=== PATIENT | male | born 1970 | race Caucasian/White ===

== ENCOUNTER 2019-07-20 02:52 | Emergency (ER) | payer SELFPAY ==
[2019-07-20 03:13] VITALS: TEMP 98.5
[2019-07-20] MEDS ORDERED: PROCHLORPERAZINE INJ 10 MG/2 ML VIAL IV ONE ×2 (03:27→05:02)
[2019-07-20] MEDS ORDERED: MORPHINE SULFATE INJ 10 MG/ML VIAL IV ONE ×2 (03:27→05:02)
[2019-07-20] MEDS ORDERED: LACTATED RINGERS 1,000 ML IVS ONE (03:27)
--- NOTE | 2019-07-20 03:27 | ED.PDOC ---
History of Present Illness - General Chief Complaint: Abdominal Pain Stated Complaint: abd cramping Time Seen by Provider: 07/20/19 03:22 Information Source: patient Exam Limitations: no limitations - History of Present Illness Initial Comments: Boaz Landeros 49 y/o male came to ER with left sided abdominal cramps today with blood in stools.Has history of Crohns Disease diagnosed last year.He is from [place], [place] and on the following medications for his Crohns- steroids,Azathioprine,metronidazole but ran out for the last 2 weeks and did not call up his primary Md or GI specialist for refills.No N/V/D,no fever/chills.No follow up with GI specialist for a year. Abdominal Pain Onset Location: LLQ Pain Radiation: no radiation Quality: moderate, cramping Timing/Duration: 24 hours Improving Factors: nothing Worsening Factors: nothing Associated Symptoms: other - see hpi Review of Systems - Review of Systems Gastrointestinal/Abdominal: States: see HPI, abdominal pain - cramps All other Systems: Reviewed and Negative, No Change from Baseline Past Medical History (General) - Patient Medical History Hx Seizures: No Hx Stroke: No Hx Dementia: No Hx Asthma: No Hx of COPD: No Hx Cardiac Disorders: No Hx Congestive Heart Failure: No Hx Pacemaker: No Hx Hypertension: Yes Hx Thyroid Disease: No Hx Diabetes: No Hx Gastroesophageal Reflux: Yes - Chrohn's Hx Renal Disease: No Hx of HIV: No Hx MRSA: No Surgical History: other - lumbar spine;colonoscopy - Vaccination History Hx Tetanus, Diphtheria Vaccination: No Hx Influenza Vaccination: No - Social History Hx Tobacco Use: No Hx Alcohol Use: No Family Medical History - Family History Father Family History: Unknown Living Status: Unknown Physical Exam - Physical Exam General Appearance: Alert, Comfortable, No apparent distress Eyes, Ears, Nose, Throat Exam: normal ENT inspection Neck: supple, normal inspection Respiratory: chest non-tender, lungs clear, normal breath sounds Cardiovascular/Chest: normal peripheral pulses, regular rate, rhythm, no murmur Peripheral Pulses: No deficit Gastrointestinal/Abdominal: normal bowel sounds, soft, no organomegaly, tenderness - LLQ no peritoneal signs Back Exam: no CVA tenderness, no vertebral tenderness Extremity: no pedal edema, no calf tenderness Neurologic: alert, oriented x 3 Skin Exam: normal color, warm/dry Progress - Progress Progress: 07/20/19 03:36 Vital Signs - 8 hr 07/20/19 03:05 Temperature 98.5 F Pulse Rate [ 132 H left] Respiratory 20 Rate Blood Pressure 137/88 [Left Arm] O2 Sat by Pulse 96 Oximetry 07/20/19 06:18 Discuss all test results with patient - Results/Orders Results/Orders: Vital Signs - 8 hr 07/20/19 07/20/19 03:05 04:17 Temperature 98.5 F Pulse Rate [ 132 H 110 H left] Respiratory 20 20 Rate Blood Pressure 137/88 104/78 [Left Arm] O2 Sat by Pulse 96 90 L Oximetry - EKG/XRAY/CT XRAY: abdomen - no acute abnormalities noted Departure - Departure Clinical Impression: Crohn's disease of colon with rectal bleeding, Abdominal pain, LLQ Time of Disposition: 06:22 Disposition: Discharge to Home or Self Care Condition: Fair Departure Forms: ED Discharge - Pt. Copy, Patient Portal Self Enrollment Instructions: DI for Abdominal Pain-Adult, Crohn's Disease in Adults, Crohn's Disease (DC), Crohn's Disease Diet Prescriptions: predniSONE 10 mg PO BID 10 Days #20 tab Promethazine W/Codeine Syr [Phenergan With Codeine Syrup] 10 ml PO TID PRN #100 ud PRN Reason: Abdominal Cramping Home Medications: Ambulatory Orders Promethazine W/Codeine Syr [Phenergan With Codeine Syrup] 10 ml PO TID PRN #100 ud 07/20/19 predniSONE 10 mg PO BID 10 Days #20 tab 07/20/19 Additional Instructions: Return to Emergency Room as needed;Need to sign up with primary Md DOLLY [phone]
[2019-07-20] MEDS ORDERED: methylPREDNISolone SODIUM SUC 125 MG/2 ML VIAL IV ONE (03:31)
[2019-07-20] MEDS ORDERED: SODIUM CHLORIDE 0.9% 1000ML 1,000 ML IVS ONE (05:03)
--- NOTE | 2019-07-20 05:52 | RAD ---
ABDOMEN SERIES AND CHEST, XR 07/20/2019 CLINICAL HISTORY: Abdominal pain. COMPARISON: None. TECHNIQUE: Two views of the abdomen. Single frontal view of the chest FINDINGS: Chest: Heart is normal in size. Normal bony vascularity. Clear lungs and pleural spaces. No pneumothorax. Abdomen: Moderate stool within the ascending colon to the rectal region. No free air. No pathologic calcifications. No abnormal bowel displacement. Unremarkable bones and soft tissues. IMPRESSION: 1. No acute chest disease. 2. Mild constipation. Electronically signed by: Ana Adams DO 07/20/2019 5:08 AM CDT
[2019-07-20 06:09] VITALS: BP 100/64; O2SAT 92
[2019-07-20] MEDS ORDERED: HYDROCOD/APAP 10/325 (ER DISP) # 3 tablets PO ONE (06:25)
[2019-07-20] MEDS ORDERED: PROMETHAZINE TAB (ER DISP) 25 MG TAB PO ONE (06:26)
== END 2019-07-20 06:45 | disposition home or self-care (01) ==
LOC: ER 02:52
DX: K50.90 Crohn's disease, unspecified, without complications (principal); K62.5 Hemorrhage of anus and rectum; I10 Essential (primary) hypertension; K21.9 Gastro-esophageal reflux disease without esophagitis; Z79.899 Other long term (current) drug therapy
CPT/HCPCS: 36415; 74019; 80048; 80076; 82550; 82553; 84484; 85025; 85610; 85730; J0780; J2270; J2930; J7030; J7120

== ENCOUNTER 2019-08-31 20:06 | Emergency (ER) | payer SELFPAY ==
[2019-08-31 20:34] VITALS: TEMP 99.1
[2019-08-31] MEDS ORDERED: MORPHINE SULFATE INJ 10 MG/ML VIAL IV ONE (20:58)
[2019-08-31] MEDS ORDERED: ONDANSETRON INJ 4 MG/2 ML VIAL IV ONE (20:58)
[2019-08-31] MEDS ORDERED: SODIUM CHLORIDE 0.9% 1000ML 1,000 ML IVS ONE (20:58)
--- NOTE | 2019-08-31 20:58 | ED.PDOC ---
History of Present Illness - General Time Seen by Provider: 08/31/19 20:44 Information Source: patient Exam Limitations: no limitations - History of Present Illness Initial Comments: Patient presents to the ED complaining of abdominal pain. PMH is significant for Crohn's colitis. He states that he has been in a flare for almost three weeks now. He does not have insurance and sometimes has difficulty getting is medications. He states that he has been reducing his dose of mesalamine and azathioprine in order for them to last longer. He complains of three weeks of colitis flare including bloody bowel movements. He is having difficulty tolerating PO due to severe cramping pain and vomiting. He reports 10-12 bloody stools daily and has had fever to 100.9 at home. He feels weak, dizzy and short of breath. No other complaints at this time. Abdominal Pain Onset Location: generalized abdomen Pain Radiation: no radiation Quality: severe, aching, sharpness, throbbing Timing/Duration: days, constant, getting worse Improving Factors: nothing Worsening Factors: nothing Review of Systems - Review of Systems Constitutional: States: chills, fever EENTM: States: no symptoms reported Respiratory: Denies: cough Cardiology: States: no symptoms reported Gastrointestinal/Abdominal: States: abdominal pain, diarrhea, nausea, vomiting Genitourinary: States: no symptoms reported Musculoskeletal: States: no symptoms reported Skin: States: no symptoms reported Neurological: States: no symptoms reported Endocrine: States: no symptoms reported Hematologic/Lymphatic: States: no symptoms reported Past Medical History (General) - Patient Medical History Hx Seizures: No Hx Stroke: No Hx Dementia: No Hx Asthma: No Hx of COPD: No Hx Cardiac Disorders: No Hx Congestive Heart Failure: No Hx Pacemaker: No Hx Hypertension: Yes Hx Thyroid Disease: No Hx Diabetes: No Hx Gastroesophageal Reflux: Yes - Chrohn's Hx Renal Disease: No Hx of HIV: No Hx MRSA: No - Vaccination History Hx Tetanus, Diphtheria Vaccination: No Hx Influenza Vaccination: No - Social History Hx Tobacco Use: No Hx Alcohol Use: No Family Medical History - Family History Father Family History: Unknown Living Status: Unknown Physical Exam - Physical Exam General Appearance: Alert, Comfortable, No apparent distress Neck: non-tender, full range of motion Respiratory: normal breath sounds, no accessory muscle use Cardiovascular/Chest: normal peripheral pulses, regular rate, rhythm Gastrointestinal/Abdominal: tenderness - diffuse Extremity: normal range of motion, non-tender, normal inspection Neurologic: no motor/sensory deficits, alert, oriented x 3 Progress - Progress Progress: 08/31/19 23:40 Patient reassessed, workup as above. I have recommended admission for crohn's flare. He declines. Would like to be discharged. Says he will self-present at [facility] tomorrow. Will refill medications. MDM: Patient presents to the ED with abdominal pain, bloody diarrhea. Partly compliant with medications at home but not taking full dosing. Workup as above. CT scan ordered to r/o abscess, fistula. Findings consistent with crohn's flare. Recommended admission due to ongoing blood losses, pain, inability to tolerate PO. The patient refused, states that he wants to go home and self-present tomorrow. Discussed risks, benefits and alternatives. Will refill his home medications and continue outpatient symptomatic management. patient understands he is welcome to return as needed. - Results/Orders Results/Orders: 08/31/19 22:18 Hold Metformin x 48Hrs [id number] Laboratory Results - last 24 hr 08/31/19 08/31/19 08/31/19 09:15 09:15 20:57 WBC 5.6 RBC 3.45 L Hgb 8.4 L Hct 27.2 L MCV 78.9 L MCH 24.4 L MCHC 30.9 L RDW 17.9 H Plt Count 285 MPV 7.9 Absolute Neuts (auto) 3.60 Absolute Lymphs (auto) 0.70 L Absolute Monos (auto) 1.20 H Absolute Eos (auto) 0.10 Absolute Basos (auto) 0.00 Neutrophils % 63.8 Lymphocytes % 12.6 L Monocytes % 21.7 H Eosinophils % 1.3 Basophils % 0.6 Normal RBC Morphology Stain quality accept Sodium 134 L Potassium 3.7 Chloride 98 L Carbon Dioxide 24 Anion Gap 15.7 BUN 10 Creatinine 1.07 BUN/Creatinine Ratio 9.3 L Random Glucose 96 Serum Osmolality 267.1 L Calcium 8.7 Total Bilirubin 0.2 AST 10 ALT 10 Alkaline Phosphatase 46 Serum Total Protein 6.0 L Albumin 3.1 L Globulin 2.9 Albumin/Globulin Ratio 1.1 Lipase 22 Patient ABO/Rh O NEGATIVE Antibody Screen Negative - EKG/XRAY/CT CT: descending colitis Departure - Departure Clinical Impression: Crohn's colitis Qualifiers: Digestive disease complication type: with rectal bleeding Qualified Code(s): K50.111 - Crohn's disease of large intestine with rectal bleeding Time of Disposition: 23:42 Disposition: Discharge to Home or Self Care Condition: Fair Departure Forms: ED Discharge - Pt. Copy, Patient Portal Self Enrollment Instructions: Crohn's Disease (DC) Diet: full liquid diet, bland diet Activity: increase activity as tolerated Prescriptions: Acetaminophen W/ Codeine [Tylenol W/ CODEINE #3] 1 ea PO Q6HR PRN #20 PRN Reason: Pain Ondansetron Tab [Zofran Tab] 4 mg PO Q6HR #12 tab Sulfasalazine 1,000 mg PO Q6HR #120 tab Azathioprine [Imuran] 250 mg PO DAILY #150 tab Hydrochlorothiazide 25 mg PO DAILY #30 tab Pantoprazole Tablet [Protonix] 40 mg PO ACBK #30 tab Home Medications: Ambulatory Orders Promethazine W/Codeine Syr [Phenergan With Codeine Syrup] 10 ml PO TID PRN #100 ud 07/20/19 predniSONE 10 mg PO BID 10 Days #20 tab 07/20/19 Acetaminophen W/ Codeine [Tylenol W/ CODEINE #3] 1 ea PO Q6HR PRN #20 08/31/19 Azathioprine [Imuran] 250 mg PO DAILY #150 tab 08/31/19 Hydrochlorothiazide 25 mg PO DAILY #30 tab 08/31/19 Ondansetron Tab [Zofran Tab] 4 mg PO Q6HR #12 tab 08/31/19 Pantoprazole Tablet [Protonix] 40 mg PO ACBK #30 tab 08/31/19 Sulfasalazine 1,000 mg PO Q6HR #120 tab 08/31/19
[2019-08-31 23:06] VITALS: BP 117/82; O2SAT 96
--- NOTE | 2019-08-31 23:11 | CT ---
CLINICAL HISTORY: fever, abdominal pain. Hx of crohn's COMPARISON: None. TECHNIQUE: CT ABDOMEN PELVIS WITH IV CONTRAST on 08/31/2019 10:18 PM CDT This exam was performed according to our departmental dose-optimization program, which includes automated exposure control, adjustment of the mA and/or kV according to patient size and/or use of iterative reconstruction technique. FINDINGS: Lower lungs are clear. Abdomen: The liver is normal in appearance. There is no biliary dilatation. Gallbladder is normal in appearance. The pancreas and spleen are normal in appearance. Adrenal glands are normal. Kidneys unremarkable. There is a small cyst in the lower pole of the left right kidney. Abdominal aorta is normal in course and caliber without aneurysm. There is no free air. There is no retroperitoneal adenopathy. Pelvis: There is mild thickening of much of the descending colon. Urinary bladder is unremarkable. There is no free fluid. Appendix is normal. Skeleton: There are no acute osseous findings. No suspicious bony lesions. IMPRESSION: Suspect infectious or inflammatory descending colitis. Electronically signed by: David Hurt MD 08/31/2019 11:10 PM CDT
== END 2019-08-31 23:55 | disposition home or self-care (01) ==
LOC: ER 20:06
DX: K50.111 Crohn's disease of large intestine with rectal bleeding (principal); I10 Essential (primary) hypertension; Z79.899 Other long term (current) drug therapy
CPT/HCPCS: 74177; 80053; 83690; 85025; 86850; 86900; 86901; J2270; J2405; J7030

== ENCOUNTER 2020-05-05 12:02 | Emergency (ER) | payer BC ==
[2020-05-05] MEDS ORDERED: SODIUM CHLORIDE 0.9% 1000ML 1,000 ML IVS ONE (12:25)
[2020-05-05] MEDS ORDERED: KETOROLAC TROMETHAMINE INJ 30 MG/ML VIAL IM ONE (12:25)
[2020-05-05] MEDS ORDERED: KETOROLAC TROMETHAMINE INJ 30 MG/ML VIAL IV ONE (12:36)
[2020-05-05] MEDS ORDERED: HYOSCYAMINE SULFATE 0.125 MG TAB PO ONE (14:02)
[2020-05-05] MEDS ORDERED: MORPHINE SULFATE INJ 10 MG/ML VIAL IV ONE (14:02)
--- NOTE | 2020-05-05 14:21 | CT ---
EXAM DESCRIPTION: Abdomen/Pelvis w/Contrast: Computed Tomography. CLINICAL HISTORY: 50 years Male abd pain, hx Crohn's COMPARISON: CT scan abdomen and pelvis with IV contrast August 2019. TECHNIQUE: Spiral-axial scans at 5 mm intervals through the abdomen and pelvis, after nonionic IV contrast without oral contrast. Coronal and sagittal 2.0 mm reconstructions. Delayed scans, liver through the pelvis. Axial-spiral 5mm. No adverse reactions. Total Exam DLP: 1782 mGy-cm. This exam was performed according to our departmental dose-optimization program which includes automated exposure control, adjustment of the mA and/or kV according to patient size and/or use of iterative reconstruction technique; to reduce radiation dose to as low as reasonably achievable (ALARA). Due to technical factors, the first scan during the portal venous phase showed minimal contrast enhancement. FINDINGS: Lung bases and pleura: Negative. Liver, Stomach, Spleen, Adrenal Glands: Minimal contrast enhancement, otherwise negative. Pancreas, Gallbladder, Ducts: Gallbladder slightly enlarged. Pancreas and ducts negative. Kidneys and Ureters: 2 cm cyst anterior mid right kidney stable. No radiodense stones hydronephrosis or hydroureter bilaterally. Mesentery: Fatty stranding in the left upper quadrant abutting the proximal descending colon anterior to the spleen and also lateral to the left kidney. No free air or ascites or free pelvic fluid. Minimal thickening of the pericolic gutter fascia bilaterally. Aorta: Early atherosclerotic calcification with normal caliber. Small Bowel: Diffuse gas but no significant amount of fluid distention or air-fluid levels. Fecalization of distal ileum. Terminal Ileum/Cecum: Located in the mid pelvis just to the right of midline. Normal caliber including the appendix. Fecalization in the TI. Colon: Minimal fecal matter in the ascending colon and proximal to mid transverse colon. Thickening of the wall of the distal transverse colon, splenic flexure, and descending colon to the proximal sigmoid colon. Stranding in the pericolonic fat. Fecal matter distally with normal appearance of the sigmoid colon. No surrounding fatty stranding. Pelvic Organs: Negative. Spine and Bony Pelvis: Advanced spondylosis L5-S1 with bilateral significant foraminal narrowing. Minimal spondylosis distal thoracic spine. Distal coccygeal segments angled 90 degrees anteriorly to the mid and distal sacrum. Abdominal Wall/Back Soft Tissues: Stable fatty inguinal hernia on the left with bilateral inguinal lymph nodes. IMPRESSION: 1. Colitis distal transverse colon, splenic flexure, and descending colon, most likely related to clinical history and Crohn's. Surrounding fatty stranding and fascial thickening but no free air or free fluid. Colon wall thickening involves a shorter segment than the prior study. Gas distention of the small bowel and colon has decreased since the prior study 2. Other findings stable since the prior study. Electronically signed by: Orlando Fuentes MD 05/05/2020 2:20 PM CDT
[2020-05-05] MEDS ORDERED: methylPREDNISolone SODIUM SUC 125 MG/2 ML VIAL IV ONE (14:26)
[2020-05-05] MEDS ORDERED: metroNIDAZOLE 500 MG TAB PO ONE (14:26)
[2020-05-05] MEDS ORDERED: CIPROFLOXACIN 500 MG TAB PO ONE (14:26)
--- NOTE | 2020-05-05 14:53 | ED.PDOC ---
History of Present Illness - General Chief Complaint: Abdominal Pain Stated Complaint: abdominal cramping,vomiting Time Seen by Provider: 05/05/20 12:18 Source: patient Exam Limitations: no limitations - History of Present Illness Initial Comments: The patient is a 50-year-old male presented emergency room secondary to pain related to what appears to be a Crohn's flare. He has had intermittent blood in his stools over the last week. He reports that he gets a flare about every 2 to 3 months. He does not currently have a city designer but gets his azathioprine and sulfasalazine from his primary care doctor. No definite fevers. Increased cramping to the left side over the last week. No vomiting but mild nausea. No definite fever. No history of any abdominal surgeries. He was just diagnosed about a year ago. Timing/Duration: 1 week Severity: moderate Improving Factors: nothing Worsening Factors: nothing Associated Symptoms: loss of appetite, malaise, nausea/vomiting Allergies/Adverse Reactions: Allergies Penicillins Allergy (Verified 07/20/19 03:28) Home Medications: Ambulatory Orders Azathioprine [Imuran] 250 mg PO DAILY #150 tab 08/31/19 Ciprofloxacin [Cipro] 500 mg PO BID #20 tab 05/05/20 Famotidine 20 mg PO DAILY #30 tab 05/05/20 Lisinopril & Hydrochlorothiazi [Lisinopril/Hydrochlorothi 20-12.5 mg] 1 tab PO DAILY 05/05/20 Metronidazole 500 mg PO TID #30 tab 05/05/20 Sulfasalazine 500 mg PO QID 05/05/20 Tramadol HCl 50 mg PO Q8HR PRN #20 tab 05/05/20 predniSONE [Prednisone] 80 mg PO DAILY #40 tab 05/05/20 Review of Systems - Review of Systems Constitutional: States: malaise EENTM: States: no symptoms reported Respiratory: States: no symptoms reported Cardiology: States: no symptoms reported Gastrointestinal/Abdominal: States: see HPI Genitourinary: States: no symptoms reported Musculoskeletal: States: no symptoms reported Skin: States: no symptoms reported Neurological: States: no symptoms reported Endocrine: States: no symptoms reported All other Systems: No Change from Baseline Past Medical History (General) - Patient Medical History Hx Seizures: No Hx Stroke: No Hx Dementia: No Hx Asthma: No Hx of COPD: No Hx Cardiac Disorders: No Hx Congestive Heart Failure: No Hx Pacemaker: No Hx Hypertension: Yes Hx Thyroid Disease: No Hx Diabetes: No Hx Gastroesophageal Reflux: Yes - Chrohn's Hx Renal Disease: No Hx of HIV: No Hx MRSA: No - Vaccination History Hx Tetanus, Diphtheria Vaccination: No Hx Influenza Vaccination: Yes Hx Pneumococcal Vaccination: No - Social History Hx Tobacco Use: No Hx Chewing Tobacco Use: Yes Hx Alcohol Use: No Family Medical History - Family History Father Family History: Unknown Living Status: Unknown Physical Exam - Physical Exam General Appearance: Alert, No apparent distress Eye Exam: bilateral normal Ears, Nose, Throat: hearing grossly normal, normal ENT inspection, normal pharynx Neck: full range of motion, supple Respiratory: no respiratory distress, no accessory muscle use Cardiovascular/Chest: normal peripheral pulses, no edema, other - Regular rate Peripheral Pulses: radial,right: 2+, radial,left: 2+ Gastrointestinal/Abdominal: soft, other - Mild guarding to the left side. Rectal Exam: deferred Back Exam: no vertebral tenderness Extremity: normal range of motion, non-tender, normal inspection, no pedal edema, normal capillary refill Neurologic: auto technician mechanic II-XII nml as tested, alert, normal mood/affect, oriented x 3 Skin Exam: normal color Comments: Vital Signs - 24 hr 05/05/20 05/05/20 05/05/20 12:13 13:00 14:10 Temperature 99.6 F Pulse Rate [ 104 H 108 H 101 H Left Brachial] Respiratory 20 17 Rate Blood Pressure 159/102 129/83 135/92 [Left Arm] O2 Sat by Pulse 95 95 100 Oximetry Progress - Progress Progress: 05/05/20 14:56 Patient is a 50-year-old male presented emergency room secondary to what appears to be a Crohn's flare. The patient is going to be placed on 10 days of ciprofloxacin and metronidazole. He needs to avoid alcohol intake with these. He will also be written for Pepcid while on the antibiotics. Additionally he is going to be written for 80 mg of prednisone for the next 10 days as well. He does need to follow back up with his primary care doctor early next week. ER warnings are given for any obvious worsening. He will be written for some tramadol for as needed use as well. andre poon [phone] [facility] consulted - Results/Orders Results/Orders: CT of the abdomen pelvis with contrast shows what is most likely a Crohn's flare to the distal transverse and descending colon to the point of the sigmoid. No evidence of perforation, fistula formation or abscess formation. See report for details. Laboratory Tests 05/05/20 05/05/20 05/05/20 12:27 12:27 12:27 WBC 4.9 RBC 4.54 L Hgb 12.6 L Hct 38.1 L MCV 83.8 MCH 27.7 MCHC 33.0 RDW 18.2 H Plt Count 409 H MPV 8.4 Absolute Neuts (auto) 3.50 Absolute Lymphs (auto) 0.60 L Absolute Monos (auto) 0.50 Absolute Eos (auto) 0.10 Absolute Basos (auto) 0.10 Neutrophils % 72.5 Lymphocytes % 13.2 L Monocytes % 10.4 H Eosinophils % 2.1 Basophils % 1.8 Sodium 139 Potassium 4.2 Chloride 104 Carbon Dioxide 25 Anion Gap 14.2 BUN 9 Creatinine 0.83 BUN/Creatinine Ratio 10.8 Random Glucose 82 Serum Osmolality 275.3 Lactic Acid 1.1 Calcium 8.7 Total Bilirubin 0.5 AST 34 ALT 48 Alkaline Phosphatase 42 Creatine Kinase 303 H* CK-MB (CK-2) 3.1 CK-MB (CK-2) % Not Reportable Troponin I < 0.02 Serum Total Protein 7.3 Albumin 3.3 Globulin 4.0 H Albumin/Globulin Ratio 0.8 L Amylase 89 Lipase Urine Color Urine Appearance Urine pH Ur Specific [place] Urine Protein Urine Glucose (UA) Urine Ketones Urine Blood Urine Nitrite Urine Bilirubin Urine Urobilinogen Ur Leukocyte Esterase Urine RBC Urine WBC Ur Epithelial Cells Urine Bacteria 05/05/20 05/05/20 12:27 12:30 WBC RBC Hgb Hct MCV MCH MCHC RDW Plt Count MPV Absolute Neuts (auto) Absolute Lymphs (auto) Absolute Monos (auto) Absolute Eos (auto) Absolute Basos (auto) Neutrophils % Lymphocytes % Monocytes % Eosinophils % Basophils % Sodium Potassium Chloride Carbon Dioxide Anion Gap BUN Creatinine BUN/Creatinine Ratio Random Glucose Serum Osmolality Lactic Acid Calcium Total Bilirubin AST ALT Alkaline Phosphatase Creatine Kinase CK-MB (CK-2) CK-MB (CK-2) % Troponin I Serum Total Protein Albumin Globulin Albumin/Globulin Ratio Amylase Lipase 24 Urine Color Yellow Urine Appearance Clear Urine pH 7.5 Ur Specific [place] 1.025 Urine Protein Negative Urine Glucose (UA) Negative Urine Ketones Negative Urine Blood Negative Urine Nitrite Negative Urine Bilirubin Negative Urine Urobilinogen 0.2 Ur Leukocyte Esterase Negative Urine RBC 0 Urine WBC 0-1 Ur Epithelial Cells 0 Urine Bacteria 0 Departure - Departure Clinical Impression: Crohn's colitis Qualifiers: Digestive disease complication type: with rectal bleeding Qualified Code(s): K50.111 - Crohn's disease of large intestine with rectal bleeding Disposition: Discharge to Home or Self Care Condition: Fair Departure Forms: ED Discharge - Pt. Copy, Patient Portal Self Enrollment Instructions: Crohn's Disease (DC) Diet: bland diet Activity: increase activity as tolerated Referrals: HOLA PASCUAL [Primary Care Provider] - 1-2 Weeks Prescriptions: Tramadol HCl 50 mg PO Q8HR PRN #20 tab PRN Reason: Moderate Pain Ciprofloxacin [Cipro] 500 mg PO BID #20 tab Famotidine 20 mg PO DAILY #30 tab Metronidazole 500 mg PO TID #30 tab predniSONE [Prednisone] 80 mg PO DAILY #40 tab Home Medications: Ambulatory Orders Azathioprine [Imuran] 250 mg PO DAILY #150 tab 08/31/19 Ciprofloxacin [Cipro] 500 mg PO BID #20 tab 05/05/20 Famotidine 20 mg PO DAILY #30 tab 05/05/20 Lisinopril & Hydrochlorothiazi [Lisinopril/Hydrochlorothi 20-12.5 mg] 1 tab PO DAILY 05/05/20 Metronidazole 500 mg PO TID #30 tab 05/05/20 Sulfasalazine 500 mg PO QID 05/05/20 Tramadol HCl 50 mg PO Q8HR PRN #20 tab 05/05/20 predniSONE [Prednisone] 80 mg PO DAILY #40 tab 05/05/20 Additional Instructions: Patient is a 50-year-old male presented emergency room secondary to what appears to be a Crohn's flare. The patient is going to be placed on 10 days of ciprofloxacin and metronidazole. He needs to avoid alcohol intake with these. He will also be written for Pepcid while on the antibiotics. Additionally he is going to be written for 80 mg of prednisone for the next 10 days as well. He does need to follow back up with his primary care doctor early next week. ER warnings are given for any obvious worsening. He will be written for some tramadol for as needed use as well.
[2020-05-05 15:09] VITALS: BP 134/89; TEMP 98; O2SAT 94
== END 2020-05-05 15:09 | disposition home or self-care (01) ==
LOC: ER 12:02
DX: K50.111 Crohn's disease of large intestine with rectal bleeding (principal); I10 Essential (primary) hypertension
CPT/HCPCS: 36415; 74177; 80053; 81001; 82150; 82550; 82553; 83605; 83690; 84484; 85025; J1885; J2270; J2930; J7030

== ENCOUNTER 2020-08-09 14:17 | Observation (INO) | payer BC ==
[2020-08-09] MEDS ORDERED: PROMETHAZINE HCL INJ 25 MG in SODIUM CHLORIDE 0.9% 50ML 50 ML IVPB ONE (14:40)
[2020-08-09] MEDS ORDERED: MORPHINE SULFATE INJ 10 MG/ML VIAL IV ONE ×3 (14:40→17:48)
[2020-08-09] MEDS ORDERED: methylPREDNISolone SODIUM SUC 125 MG/2 ML VIAL IV ONE (14:41)
[2020-08-09] MEDS ORDERED: SODIUM CHLORIDE 0.9% 1000ML 1,000 ML IVS ONE (14:41)
--- NOTE | 2020-08-09 17:07 | CT ---
EXAM: CT Abdomen and Pelvis With Intravenous Contrast CLINICAL HISTORY: The patient is 50 years old and is Male; suspected Crohn's flare, left upper abd pain TECHNIQUE: Axial computed tomography images of the abdomen and pelvis with intravenous contrast. Sagittal and coronal reformatted images were created and reviewed. This CT exam was performed using one or more of the following dose reduction techniques: automated exposure control, adjustment of the mA and/or kV according to patient size, and/or use of iterative reconstruction technique. COMPARISON: CT abdomen pelvis May 05, 2020. FINDINGS: Lung bases: Unremarkable. No mass. No consolidation. ABDOMEN: Liver: Unremarkable. No mass. Gallbladder and bile ducts: Mildly distended gallbladder without calcified stones. No ductal dilation. Pancreas: No findings to suggest acute pancreatitis. No mass visualized. No ductal dilation. Spleen: Unremarkable. No splenomegaly. Adrenals: Unremarkable. No mass. Kidneys and ureters: Bilateral perinephric stranding, nonspecific. No hydronephrosis or ureter stone. Right renal simple cyst, 2.4 cm. No follow-up imaging recommended. Stomach and bowel: No bowel dilatation or obstruction. No bowel wall thickening. Stomach is not well distended. PELVIS: Appendix: The visualized appendix is normal. No pericecal inflammation to suggest acute appendicitis. Bladder: Unremarkable. No mass. Reproductive: Unremarkable as visualized. ABDOMEN and PELVIS: Intraperitoneal space: Unremarkable. No free air. No significant fluid collection. Bones/joints: Bilateral femoral head AVN without femoral head collapse. L5-S1 degenerative disc disease. Old left posterior rib fractures. No acute fracture. No dislocation. Soft tissues: Unremarkable. Vasculature: Unremarkable. No abdominal aortic aneurysm. Lymph nodes: No pathologically enlarged lymph nodes. Other findings: . IMPRESSION: 1. No acute obstructive or inflammatory process identified. Normal appendix. 2. Mildly distended gallbladder without calcified stones. 3. Additional non-emergent findings as above. Electronically signed by: Rachel Castro MD 08/09/2020 5:05 PM CDT
[2020-08-09] MEDS ORDERED: levoFLOXacin 500MG IV 500 MG in PREMIX BAG 1 BAG IVPB ONE (17:29)
[2020-08-09] MEDS ORDERED: SUCRALFATE 1 GM/10 ML 1 GM UD PO ONE (17:29)
[2020-08-09] MEDS ORDERED: metroNIDAZOLE IV PREMIX 500MG 500 MG in PREMIX BAG 1 BAG IVPB ONE (17:29)
--- NOTE | 2020-08-09 17:36 | ED.PDOC ---
History of Present Illness - General Chief Complaint: Problem Stated Complaint: ABD pain, N/V/D, bloody stool, bloody vomitus Time Seen by Provider: 08/09/20 14:29 Source: patient Exam Limitations: no limitations - History of Present Illness Initial Comments: The patient is a 50-year-old male presented to the emergency room secondary to severe left upper quadrant pain progressive over the last 3 to 4 days with around 6 episodes of vomiting some with a little bit of blood in it. He is also had increased frequency of diarrhea, possibly also blood-tinged. Does have a 3 to 4-year history of Crohn's disease. 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 He was on Imuran at one point but is no longer on it. He does report that he is still on azathioprine and sulfasalazine. 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 He denies having had any abdominal surgeries in the past. No history of any intra-abdominal abscesses or fistulas. The patient is pleasant and cooperative though he is obviously in significant pain. It does require about 6 mg of morphine and 25 mg of IV Phenergan to help get the pain and nausea under control. I see no definitive history of any drug-seeking behavior. FILES SUPERVISOR aware was consulted. Timing/Duration: constant, getting worse Severity: severe Improving Factors: nothing Worsening Factors: eating Associated Symptoms: loss of appetite, malaise, nausea/vomiting Allergies/Adverse Reactions: Allergies Penicillins Allergy (Verified 08/09/20 14:58) Home Medications: Ambulatory Orders Azathioprine [Imuran] 250 mg PO DAILY #150 tab 08/31/19 Famotidine 20 mg PO DAILY #30 tab 05/05/20 Lisinopril & Hydrochlorothiazi [Lisinopril/Hydrochlorothi 20-12.5 mg] 1 tab PO DAILY 05/05/20 Metronidazole 500 mg PO TID #30 tab 05/05/20 Sulfasalazine 500 mg PO QID 05/05/20 Tramadol HCl 50 mg PO Q8HR PRN #20 tab 05/05/20 Review of Systems - Review of Systems Constitutional: States: malaise EENTM: States: no symptoms reported Respiratory: States: no symptoms reported Cardiology: States: no symptoms reported Gastrointestinal/Abdominal: States: abdominal pain, diarrhea, nausea, vomiting Genitourinary: States: no symptoms reported Musculoskeletal: States: no symptoms reported Skin: States: no symptoms reported Neurological: States: no symptoms reported Endocrine: States: no symptoms reported All other Systems: No Change from Baseline Past Medical History (General) - Patient Medical History Hx Seizures: No Hx Stroke: No Hx Dementia: No Hx Asthma: No Hx of COPD: No Hx Cardiac Disorders: No Hx Congestive Heart Failure: No Hx Pacemaker: No Hx Hypertension: Yes Hx Thyroid Disease: No Hx Diabetes: No Hx Gastroesophageal Reflux: No Hx Renal Disease: No Hx of HIV: No Hx MRSA: No Surgical History: no surgical history - Vaccination History Hx Tetanus, Diphtheria Vaccination: No Hx Influenza Vaccination: No Hx Pneumococcal Vaccination: No - Social History Hx Tobacco Use: No Hx Chewing Tobacco Use: Yes Hx Alcohol Use: No Hx Substance Use: No Hx Substance Use Treatment: No Hx Depression: No - Female History Patient is a Female of Child Bearing Age (10 -59 yrs old): No Patient : No Family Medical History - Family History Father Family History: Unknown Living Status: Unknown Physical Exam - Physical Exam General Appearance: Alert, Obvious distress Eye Exam: bilateral normal Ears, Nose, Throat: hearing grossly normal, normal ENT inspection, normal pharyn x Neck: full range of motion, supple Respiratory: lungs clear, normal breath sounds, no respiratory distress, no accessory muscle use Cardiovascular/Chest: normal peripheral pulses, regular rate, rhythm, no edema Peripheral Pulses: radial,right: 2+, radial,left: 2+, dorsalis pedis,right: 2+, dorsalis pedis,left: 2+ Gastrointestinal/Abdominal: other - No definite palpable mass. No definite rebound. Patient has discomfort to palpation primarily in the left upper quadrant. No significant pain in the right lower quadrant. No significant pain the right upper quadrant. There is also some mild to moderate pain in the left lower quadrant. Rectal Exam: deferred Back Exam: no CVA tenderness, no vertebral tenderness Extremity: normal range of motion, non-tender, normal inspection, no pedal edema , normal capillary refill Neurologic: teacher adult education II-XII nml as tested, alert, normal mood/affect, oriented x 3 Skin Exam: normal color Comments: Vital Signs - 24 hr 08/09/20 08/09/20 08/09/20 14:25 14:41 15:30 Temperature 98.6 F Pulse Rate [ 109 H 109 H 104 H Pulse ox] Respiratory 20 20 18 Rate Blood Pressure 121/79 152/88 [L arm] O2 Sat by Pulse 97 94 L Oximetry 08/09/20 08/09/20 16:07 17:00 Temperature 98.6 F Pulse Rate [ 93 H 106 H Pulse ox] Respiratory 20 Rate Blood Pressure 157/99 137/97 [L arm] O2 Sat by Pulse 100 92 L Oximetry Progress - Progress Progress: 08/09/20 17:40 The patient is a 50-year-old male presented emergency room secondary to severe abdominal pain progressive over the last 3 to 4 days. He does have a history of Crohn's disease and this is most likely the source. The patient reports good compliance with sulfasalazine and azathioprine. He has lost his tractor trailer driver. No fevers. The patient has required significant IV medications to help control pain as well as nausea and vomiting. He will be brought in as inpatient for management of symptoms. He is being started on metronidazole and ciprofloxacin. Will be collected to check for C. difficile. The patient is also been started on IV Solu-Medrol. No evidence of uncontrolled hemorrhage. An iron panel may prove beneficial for the patient. The patient has been started on a proton pump inhibitor in the IV form. He is also been given a GI cocktail and Carafate to reduce any gastric and upper GI irritation or inflammation. CT scan was reassuring. Admit for continued care. Expect a relatively short hospital stay as long as the patient's symptoms improve as expected. andre poon [id number] - Results/Orders Results/Orders: CT scan abdomen pelvis with IV contrast shows no obvious acute bowel pathology. No perforation. No abscess. No obstruction. No overt evidence of any active hemorrhage. See report for details. EKG shows mild sinus tachycardia. Mild left axis deviation. Possible left posterior fascicular block. Borderline R wave progression. Mild left atrial dilation. Mild T wave inversions in aVL otherwise no abnormal significant T waves. No ST segment deviation. Normal QT interval. Laboratory Results - last 24 hr 08/09/20 08/09/20 08/09/20 14:50 14:50 14:50 WBC 6.8 RBC 4.20 L Hgb 11.7 L Hct 34.8 L MCV 82.9 MCH 27.9 MCHC 33.6 RDW 22.7 H Plt Count 219 MPV 9.1 Absolute Neuts (auto) 5.50 Absolute Lymphs (auto) 0.50 L Absolute Monos (auto) 0.60 Absolute Eos (auto) 0.20 Absolute Basos (auto) 0.10 Neutrophils % 80.0 H Lymphocytes % 7.3 L Monocytes % 9.0 Eosinophils % 2.4 Basophils % 1.3 Normal RBC Morphology 1+aniso PT 9.7 INR < 1.00 PTT (SP) 23.1 Sodium 142 Potassium 4.5 Chloride 107 Carbon Dioxide 27 Anion Gap 12.5 BUN 16 Creatinine 0.76 BUN/Creatinine Ratio 21.1 H Random Glucose 95 Serum Osmolality 284.1 Lactic Acid Calcium 8.4 Magnesium 2.0 Total Bilirubin 0.7 AST 68 H ALT 57 Alkaline Phosphatase 43 Creatine Kinase 226 H* CK-MB (CK-2) 1.9 CK-MB (CK-2) % Not Reportable Troponin I 0.02 B-Natriuretic Peptide 113.0 H Serum Total Protein 6.6 Albumin 3.4 Globulin 3.2 Albumin/Globulin Ratio 1.1 Amylase 104 H Lipase 31 Urine Color Urine Appearance Urine pH Ur Specific [place] Urine Protein Urine Glucose (UA) Urine Ketones Urine Blood Urine Nitrite Urine Bilirubin Urine Urobilinogen Ur Leukocyte Esterase Urine RBC Urine WBC Ur Epithelial Cells Urine Bacteria 08/09/20 08/09/20 14:50 16:00 WBC RBC Hgb Hct MCV MCH MCHC RDW Plt Count MPV Absolute Neuts (auto) Absolute Lymphs (auto) Absolute Monos (auto) Absolute Eos (auto) Absolute Basos (auto) Neutrophils % Lymphocytes % Monocytes % Eosinophils % Basophils % Normal RBC Morphology PT INR PTT (SP) Sodium Potassium Chloride Carbon Dioxide Anion Gap BUN Creatinine BUN/Creatinine Ratio Random Glucose Serum Osmolality Lactic Acid 1.0 Calcium Magnesium Total Bilirubin AST ALT Alkaline Phosphatase Creatine Kinase CK-MB (CK-2) CK-MB (CK-2) % Troponin I B-Natriuretic Peptide Serum Total Protein Albumin Globulin Albumin/Globulin Ratio Amylase Lipase Urine Color Yellow Urine Appearance Clear Urine pH 7.0 Ur Specific [place] 1.025 Urine Protein Negative Urine Glucose (UA) Negative Urine Ketones Negative Urine Blood Negative Urine Nitrite Negative Urine Bilirubin Negative Urine Urobilinogen 0.2 Ur Leukocyte Esterase Negative Urine RBC 0 Urine WBC 0 Ur Epithelial Cells 0 Urine Bacteria 0 Departure - Departure Clinical Impression: Crohn's disease of colon with rectal bleeding Crohns disease of small intestine Qualifiers: Digestive disease complication type: unspecified complication Qualified Code(s): K50.019 - Crohn's disease of small intestine with unspecified complications Disposition: Admit Patient Departure Forms: ED Discharge - Pt. Copy, Patient Portal Self Enrollment Referrals: HOLA PASCUAL [Primary Care Provider] - 1-2 Weeks Home Medications: Ambulatory Orders Azathioprine [Imuran] 250 mg PO DAILY #150 tab 08/31/19 Famotidine 20 mg PO DAILY #30 tab 05/05/20 Lisinopril & Hydrochlorothiazi [Lisinopril/Hydrochlorothi 20-12.5 mg] 1 tab PO DAILY 05/05/20 Metronidazole 500 mg PO TID #30 tab 05/05/20 Sulfasalazine 500 mg PO QID 05/05/20 Tramadol HCl 50 mg PO Q8HR PRN #20 tab 05/05/20 Decision To Admit - Decistion To Admit Decision to Admit Reason: Medical Nature Decision to Admit Date: 08/09/20 Decision to Admit Time: 17:43
[2020-08-09] MEDS ORDERED: KETOROLAC TROMETHAMINE INJ 30 MG/ML VIAL IV ONE (17:48)
[2020-08-09] MEDS: HYDROmorphone HCL INJ 2 MG/ML VIAL IV PRN (19:47)
[2020-08-09] MEDS ORDERED: SODIUM CHLORIDE 0.9% (FLUSH) 10 ML SYG IV PRN (19:54)
[2020-08-09] MEDS ORDERED: ONDANSETRON INJ 4 MG/2 ML VIAL IV PRN (19:54)
[2020-08-09] MEDS ORDERED: IV SET AND CAP CHANGE INJ INJ SCH (20:00)
[2020-08-09] MEDS: DEX 5% W/NACL 0.45% 1000ML 1,000 ML IVS PRN (20:52)
[2020-08-09] MEDS: SODIUM CHLORIDE 0.9% (FLUSH) 10 ML SYG IV SCH (20:54)
[2020-08-09] MEDS: sulfaSALAzine DELAYED RELEASE 500 MG TAB PO SCH (20:54)
[2020-08-09] MEDS: methylPREDNISolone SODIUM SUC 40 MG/ML VIAL IV SCH (22:21)
[2020-08-09] MEDS ORDERED: HYDROmorphone HCL INJ 2 MG/ML VIAL IV ONE (22:58)
[2020-08-09] MEDS ORDERED: metroNIDAZOLE IV PREMIX 500MG 100 ML IVPB ONE (23:49)
[2020-08-10] MEDS: metroNIDAZOLE IV PREMIX 500MG 500 MG in PREMIX BAG 1 BAG IVPB SCH ×3 (00:03→16:18)
[2020-08-10] MEDS: KETOROLAC TROMETHAMINE INJ 30 MG/ML VIAL IV SCH ×4 (00:04→18:07)
[2020-08-10] MEDS: HYDROmorphone HCL INJ 2 MG/ML VIAL IV PRN ×3 (00:15→09:00)
[2020-08-10] MEDS: DICYCLOMINE HCL 20 MG TAB PO PRN ×2 (02:52→08:57)
[2020-08-10] MEDS: DEX 5% W/NACL 0.45% 1000ML 1,000 ML IVS PRN (05:50)
[2020-08-10] MEDS: methylPREDNISolone SODIUM SUC 40 MG/ML VIAL IV SCH ×2 (05:52→14:07)
[2020-08-10] MEDS ORDERED: PANTOPRAZOLE SODIUM IV 40 MG VIAL IV SCH (06:30)
[2020-08-10] MEDS: sulfaSALAzine DELAYED RELEASE 500 MG TAB PO SCH ×3 (08:57→18:06)
[2020-08-10] MEDS: SODIUM CHLORIDE 0.9% (FLUSH) 10 ML SYG IV SCH (08:59)
[2020-08-10] MEDS ORDERED: hydroCHLOROthiazide 12.5 MG CAP PO SCH (09:00)
[2020-08-10] MEDS ORDERED: AZATHIOPRINE PO SCH (09:00)
[2020-08-10] MEDS ORDERED: LISINOPRIL 10 MG TAB PO SCH (09:00)
[2020-08-10] MEDS ORDERED: levoFLOXacin 500MG IV 500 MG in PREMIX BAG 1 BAG IVPB SCH (09:00)
[2020-08-10] MEDS: traMADol HCL 50 MG TAB PO PRN ×2 (10:16→14:06)
[2020-08-10] MEDS ORDERED: HYDROmorphone HCL INJ 2 MG/ML VIAL IV ONE (15:47)
--- NOTE | 2020-08-10 16:07 | US ---
EXAM DESCRIPTION: Abdomen,Complete: Ultrasound. CLINICAL HISTORY: 50 years Maleabd pain; hx of Crohn's dx; distended gb COMPARISON: None Available. TECHNIQUE: Transabdominal scanning: grayscale and Doppler modes. FINDINGS: Gallbladder: Elongated with prominent fold. Multiple foci of sludge. No fluid around the gallbladder. No wall thickening. mm Non-tender with transducer pressure. Common bile duct: caliber 3.9 mm within normal limits. Liver: normal echogenicity; contour liver capsule smooth where seen. No fluid around the liver. Intrahepatic biliary ducts normal caliber. Doppler hepatopedal flow and normal caliber portal vein 14 mm.. Long axis right lobe 17.9 cm. Pancreas: normal size and echogenicity. Limited visualization. Duct not seen. Complete abdominal aorta: Normal caliber from the proximal segment to the distal bifurcation.. IVC: visualized and normal caliber. Right kidney: long axis measures 13.5 cm; volume 263.9 mL. Increased cortical echogenicity. Normal cortical thickness. No echogenic stones; no hydronephrosis. Left kidney: long axis measures 11.5 cm; volume 282.7 mL. Increased cortical echogenicity.. Normal cortical thickness. No echogenic stones; no hydronephrosis. Spleen: Normal. No focal lesions.. 1 cm. long axis. Other: None. IMPRESSION: 1. Gallbladder elongated with prominent folds but no wall thickening or fluid. Diffuse debris/sludge in the gallbladder. Nontender with transducer pressure. No definite stones. Consider radionuclide hepatobiliary imaging if function is clinically poor. Common bile duct normal caliber. 2. Liver with steatosis and enlarged. Vascularity and ducts are unremarkable. Limited visualization of the pancreas but unremarkable. 3. Bilateral kidneys are enlarged with echogenic cortex equal to the liver. Correlate for medical renal disease. No echogenic stones or hydronephrosis. Normal caliber of the abdominal aorta and IVC. Electronically signed by: Orlando Fuentes MD 08/10/2020 4:05 PM CDT
[2020-08-10] MEDS ORDERED: HYDROmorphone HCL INJ 2 MG/ML VIAL ONE (16:08)
[2020-08-10 16:35] VITALS: O2SAT 95
[2020-08-10 18:30] VITALS: BP 136/81; TEMP 98
--- NOTE | 2020-08-17 08:42 | SSS ---
SUPERVISING PHYSICIAN: Eran Lozano MD DISCHARGE DIAGNOSES: 1. Acute exacerbation of chronic Crohn's disease with significant pain, nausea and vomiting. After treatment, he is mostly asymptomatic. 2. Hypertension, stable on medication. 3. Gastroesophageal reflux disease. 4. Crohn's disease, presently on Imuran and Sulfathalidine. 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 He came to the Emergency Room secondary to severe left upper quadrant pain that had progressively over the 3 to 4 previous days. He actually had to miss work 2 days prior to admission due to vomiting as well as his abdominal pain, increased frequency of diarrhea that actually may have been blood-tinged. He has a significant history of Crohn's disease and was actually seeing a apron operator who apparently recently retired. At this time, he is requesting to see Dr. Dillard in [place]. He was checked for Covid-19 in the Emergency Room which was negative. His initial vital signs were stable with the exception his heart rate was in the 100s. Lab studies were done and he had a WBC of 6,800 with hemoglobin of 11.7 and hematocrit of 34.8. Electrolytes were within normal limits. Creatinine kinase was 226 with BNP slightly elevated at 113 and amylase 104, lipase 31. Urinalysis was unremarkable. Abdomen and pelvis CT showed: 1. No acute obstructive process identified, normal appendix. 2. Mildly distended gallbladder without calcified stones. 3. Other findings as per the report. He was given morphine and Phenergan and he was placed in observation in stable condition for pain management. PAST MEDICAL HISTORY: 1. Gastroesophageal reflux disease. 2. Crohn's disease presently on Imuran and sulfasalazine. 3. Hypertension. PAST SURGICAL HISTORY: None. CURRENT MEDICATIONS: 1. Imuran. 2. Pepcid. 3. Lisinopril/Hydrochlorothiazide. 4. Sulfasalazine. 5. Tramadol. FAMILY HISTORY: SOCIAL HISTORY: He lives between [place] and [place]. 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 He denies any smoking history, although he does use smokeless tobacco at times and there is no history of alcohol or substance abuse. REVIEW OF SYSTEMS: GENERAL: Negative for fever, chills or weight changes. HEENT: Negative for sinus symptoms, ear pain, vision changes, sore throat. RESPIRATORY: Negative for coughing, wheezing, shortness of breath. CARDIAC: Negative for chest pain, palpitations, tachycardia. GI: As per history of present illness. GENITOURINARY: Negative for hematuria, dysuria, polyuria. MUSCULOSKELETAL: Negative for arthralgias, myalgias. SKIN: Negative for lesions or rashes. NEUROLOGICAL: Negative for headaches, weakness or seizures. PHYSICAL EXAMINATION: VITAL SIGNS: Temperature 98, heart rate 82, blood pressure 136/81, respiratory rate 16, oxygen saturation 95% on room air. GENERAL: This is a 50 year-old male patient who is in no acute distress. HEENT: Normocephalic and atraumatic. Pupils are equal and reactive. Oropharynx is clear. NECK: Supple without mass. CHEST: Essentially clear to auscultation bilaterally. CARDIOVASCULAR: Regular rate and rhythm. ABDOMEN: Soft, nondistended. He is mildly tender in the epigastric and left upper abdominal area. It is fairly diffuse in nature and there is no rebound tenderness or guarding. Bowel sounds are positive. EXTREMITIES: No cyanosis, clubbing, or edema. NEUROLOGIC: He is awake, alert, and oriented x3. Cranial nerves II through XII are grossly intact as tested. HOSPITAL COURSE: The patient was placed in observation in the hospital. His pain was initially difficult to control but after it was controlled he was quickly weaned off the IV antibiotics. He did have a Tramadol after he was discontinued on his IV medications, although he had some mild pain he was rather anxious to get out. His diet was advanced very slowly. He continues on a full liquid diet and has had no problems with nausea or vomiting. He will be discharged in stable condition. LABORATORY: Followup CBC was basically unremarkable, although he is slightly anemic with a hemoglobin of 10.7 and hematocrit of 31.7. That may be hemodiluted. Electrolytes were within normal limits with the exception his calcium was slightly low at 7.9. His abdominal ultrasound shows: 1. Gallbladder elongated with prominent folds, no wall thickening or fluids, diffuse debris/sludge in the gallbladder. Non-tender with transducer pressure. No definite stones. Consider radionuclide hepatobiliary imaging if function is chronically poor, common bile duct normal caliber. 2. Liver with steatosis and enlarged. Vascularity and ducts are unremarkable. Limited visualization of the pancreas but unremarkable. 3. Bilateral kidneys are enlarged with echogenic cortex equal to the liver. Correlate for medical renal disease. No echogenic stones or hydronephrosis. Normal caliber of the abdominal aorta and IVC. DISCHARGE PLAN: The patient will be discharged home in stable condition. He is to advance his diet as tolerated to bland. He is to increase his activity as tolerated. He did receive a note to return to work. He had previously seen a physician in [place] but he would like to go to [place] and see Dr. Dillard for consultation of his Crohn's disease since his GI doctor retired and because our clinic works closely with [place] apron operator, he has agreed to see Dr. Walt Damico and will followup with him on August 20, 2020 at 9:30 AM. I have instructed him to call Dr. Damico's to get instructions whether he wants to be a Telemedicine visit or actual physical visit. It is recommended that he be referred to Dr. Dillard at the patient's request and Dr. Dillard can further do his Crohn's management. I am not sure if Dr. Damico or Dr. Dillard would like to do the recommended testing as per the ultrasound but at some point, those recommendations need to be followed up. In addition to his home medications, I have sent him on 7 days of Metronidazole, 7 days of Levaquin as well as his prednisone taper and will also have Tramadol for pain. [place] DIRECTOR OF DIVERSITY AND INCLUSION Aware, was consulted and there are no issues. He is to return to the hospital for followup with Dr. Damico for any the problems or complications. DISCHARGE MEDICATIONS: 1. Imuran. 2. Lisinopril/Hydrochlorothiazide. 3. Sulfadiazine. 4. Metronidazole. 5. Levaquin. 6. Prednisone taper. 7. Tramadol. #[id number] [facility]
== END 2020-08-10 19:00 | disposition home or self-care (01) ==
LOC: ER 14:17 → MS 17:58
PROVIDERS: ADMIT Nurse Practitioner Acute Care; ATTEND Nurse Practitioner Acute Care
DX: K50.911 Crohn's disease, unspecified, with rectal bleeding (principal); R11.2 Nausea with vomiting, unspecified; E83.51 Hypocalcemia; I10 Essential (primary) hypertension; K21.9 Gastro-esophageal reflux disease without esophagitis; F17.220 Nicotine dependence, chewing tobacco, uncomplicated; I44.5 Left posterior fascicular block; R00.0 Tachycardia, unspecified; K76.0 Fatty (change of) liver, not elsewhere classified; N28.1 Cyst of kidney, acquired; Z79.899 Other long term (current) drug therapy; Z88.0 Allergy status to penicillin
CPT/HCPCS: 96361 ×2; 96366; 96367; 96365; 96375 ×2; 96376 ×2; J1170 ×6; J1885 ×5; J1956 ×2; J1030 ×3; J2930; J3490 ×4; J2270 ×3; J2405; J2550; J7030; A4216 ×3; J7799 ×2; 82553; 80053 ×2; 36415 ×2; 82150; 81001; 85025 ×2; 82550; 83690; 83735 ×2; 85730; 85610; 84484; 83880; 83605; 74177; 76700; 94760 ×2; 99285; 93005; G0378